=== PATIENT | male | born 1985 | race Caucasian/White ===

== ENCOUNTER → 2019-07-05 16:35 | Outpatient (CLI) | payer OTHER, MEDICAID, SELFPAY ==
[2019-07-05 18:32] LABS: Cholesterol 183 mg/dL (140-199); HDL Cholesterol 37 mg/dL (40-60); LDL Cholesterol Calculated 128 mg/dL (<100); Triglycerides 90 mg/dL (35-150)
== END ==
PROVIDERS: PCP Student in an Organized Health Care Education/Training Program; Referring Provider Student in an Organized Health Care Education/Training Program; Visit Provider Student in an Organized Health Care Education/Training Program
DX: Z13.220 Encounter for screening for lipoid disorders (principal)
CPT/HCPCS: 36415; 80061

== ENCOUNTER → 2021-02-03 14:15 | Outpatient (CLI) | payer OTHER, SELFPAY ==
[2021-02-03 18:22] LABS: COVID19 -Nasal RAPID Negative (Negative)
== END ==
PROVIDERS: PCP Student in an Organized Health Care Education/Training Program; Visit Provider Nurse Practitioner Family
DX: Z20.822 Contact with and (suspected) exposure to COVID-19 (principal); R11.0 Nausea; R19.7 Diarrhea, unspecified; R68.83 Chills (without fever)
CPT/HCPCS: 87635